=== PATIENT | male | born 1970 | race Two or more races ===

== ENCOUNTER 2017-07-23 06:16 | Emergency (ER) | payer SELFPAY ==
[2017-07-23 06:20] VITALS: BP 126/92
== END 2017-07-23 07:23 | disposition home or self-care (01) ==
LOC: ED 06:16
DX: F41.9 Anxiety disorder, unspecified (principal)

== ENCOUNTER 2019-01-22 10:10 | Emergency (ER) | payer MEDICAID ==
[~2019-01-22] VITALS: Ht 167.6 cm; Wt 64.4 kg
[2019-01-22 10:28] VITALS: BP 112/82; Ht 167.6 cm; Wt 64.4 kg
== END 2019-01-22 11:56 | disposition home or self-care (01) ==
LOC: ED 10:10
DX: S93.401A Sprain of unspecified ligament of right ankle, initial encounter (principal); W19.XXXA Unspecified fall, initial encounter; Y93.89 Activity, other specified; Y92.89 Other specified places as the place of occurrence of the external cause; Y99.8 Other external cause status
CPT/HCPCS: Q0092